=== PATIENT | male | born 1930 | race Caucasian/White ===

== ENCOUNTER → 2016-05-10 | Outpatient (CLI) | payer MEDICARE, OTHER ==
[~2016-05-10] MED LIST: ACET325T38 PO; AMLO10TA5 PO; APIX2.5T2 PO; APIX5TAB PO; ASPI81TA55 PO; ATOR40TA59 PO; ATOR80TA PO; CARV25TA30 PO; CEFD300C PO; CHOL100092 PO; CHOL200014 PO; CYAN10006 PO; CYANOCOBALAMIN; FERR325T5 PO; FRSM20T PO; FURO10VI3 IV; FURO40TA4 PO; FURO80TA84 PO; HDRL25T PO; INDA1.25 PO; INSASP1U SQ; INSU100I23 SC; INSU100V32 SQ; INSU100V8 SC; INSU300I SQ; KCL20TCR PO; LOSA100T3 PO; LVT.05T PO; MELA3TAB34 PO; METF1000 PO; MTL2.5T PO; NF-ALI300T; NF-ALI300T PO; NFMET1000 PO; NIACIN; OMEG1CAP61 PO; OMEG300C3 PO; ONDA4TAB8 PO; ONDN4T PO; SAXA5TAB PO; SIMV40TA2 PO; VIT D PO; ZOLP5TAB PO
== END ==
LOC: RAD 14:25
PROVIDERS: ATTEND Family Medicine
DX: I10 Essential (primary) hypertension (principal); I50.9 Heart failure, unspecified
CPT/HCPCS: 93306

== ENCOUNTER → 2016-05-21 | Outpatient (REF) | payer MEDICARE, OTHER ==
[2016-05-21 13:08] LABS: ANION GAP 13.1 MEQ/L (3-15)
== END ==
LOC: LAB 10:00
PROVIDERS: ATTEND Family Medicine
DX: I50.9 Heart failure, unspecified (principal)
CPT/HCPCS: 80048; 83880

== ENCOUNTER → 2016-05-31 | Outpatient (CLI) | payer MEDICARE, OTHER | LOC: RT 11:01 | PROVIDERS: ATTEND Internal Medicine | DX: I25.10 Atherosclerotic heart disease of native coronary artery without angina pectoris (principal); I50.9 Heart failure, unspecified | CPT/HCPCS: 93005 ==

== ENCOUNTER 2016-06-09 13:28 | Inpatient (IN) | payer MEDICARE, OTHER ==
[~2016-06-09] VITALS: Ht 175.3 cm; Wt 89.7 kg
[2016-06-09 14:29] LABS: MEAN CORPUSCULAR HEMOGLOBIN 27.7 PG (26.0-34.0); MEAN CORPUSCULAR VOLUME 82 FL (80-100); PLATELET COUNT 213 10^3uL (150-450); WHITE BLOOD COUNT 5.32 10^3uL (4.0-11.0)
[2016-06-09 14:46] LABS: ALBUMIN 3.7 g/dL (3.4-5.0); ANION GAP 14.6 MEQ/L (3-15); CALCULATED IONIZED CALCIUM 4.1 mg/dL (3.8-4.6); TOTAL PROTEIN 6.2 g/dL (6.4-8.5)
[2016-06-09 14:51] LABS: INFLUENZA VIRUS TYPE A ANTIBOD Negative (NEGATIVE); INFLUENZA VIRUS TYPE B ANTIBOD Negative (NEGATIVE)
[2016-06-09 14:55] LABS: BAND NEUTROPHILS % 1 % (0-6); EOSINOPHILS % 1 % (0-4); LYMPHOCYTES # 0.7 #; MONOCYTES # 0.8 #; MONOCYTES % 16 % (3-11); SEGMENTED NEUTROPHILS % 68 % (51-67); TOTAL CELLS COUNTED 100
[2016-06-09 14:56] LABS: RBC MORPH NORMAL (NORMAL)
[2016-06-09] MEDS ORDERED: FUROSEMIDE 40 MG/4 ML (LASIX) VIAL IV ONE (16:10)
[2016-06-09] MEDS ORDERED: DEXTROSE 50% 25 GM/50 ML SYRINGE IV ONE (16:25)
[2016-06-09] MEDS ORDERED: POLYETHYLENE GLYCOL 17 GM (MIRALAX) PACKET PO PRN (17:10)
[2016-06-09] MEDS ORDERED: MAG HYDROX/AL HYDROX/SIMETH 200-200-20/5 ML (MAG-AL PLUS) 30 ML UDC PO PRN (17:10)
[2016-06-09] MEDS ORDERED: ONDANSETRON 2 MG/ML (Z0FRAN) 2 ML VIAL IV PRN (17:10)
[2016-06-09] MEDS ORDERED: DEXTROSE 50% 25 GM/50 ML SYRINGE IV PRN (17:10)
[2016-06-09] MEDS ORDERED: GLUCAGON EMERGENCY 1 MG/KIT IM PRN (17:10)
[2016-06-09] MEDS ORDERED: MAGNESIUM HYDROXIDE 80MG/ML (MILK OF MAGNESIA) 30 ML UDC PO PRN (17:10)
[2016-06-09] MEDS ORDERED: DEXTROSE ORAL GEL (GLUTOSE 40%) 15 GM TUBE PO PRN (17:10)
[2016-06-09] MEDS ORDERED: CALCIUM CARBONATE CHEWABLE 300 MG (TUMS) TABLET PO PRN (17:10)
[2016-06-09] MEDS: INSULIN LISPRO 1 UNIT/0.01 ML (HUMALOG) DOSE SC SCH ×2 (17:30→21:00)
[2016-06-09] MEDS ORDERED: INSULIN ASPART 6 UNIT SQ SCH (18:00)
[2016-06-09 18:14] VITALS: BP 152/78
[2016-06-09 18:16] VITALS: BP 152/78
[2016-06-09] MEDS: CARVEDILOL 25 MG (COREG) TABLET PO SCH (18:38)
--- NOTE | 2016-06-09 19:30 | NUR ---
Pt. admitted to 312 at 1755 from ED via WC accompanied by LIQUOR STORE MANAGER. Pt. able to transfer to scale and bed with SBA. Pt. placed on telemetry and report from LINING PRINTER received that pt. is in A. Fib with rate in the 70s. Nail beds are pale, but cap refill is 3 secs. Bilateral feet are discolored purple on the toes and heels. No breakdown noted. Pt. oriented to self, place and situation, but does not know the month, year or president. Pt. provided with sandwich tray for pm meal. Per Dr. Martines, mealtime insulin was held for this meal since pt. received D50 in ED. Report has been given to YVAN Briones, to assume care of pt. Call light is within reach and bed alarm is on.
[2016-06-09 19:34] VITALS: BP 130/61
[2016-06-09] MEDS ORDERED: NON-FORMULARY MEDICATION 1 EA EA (Melatonin 3 MG) PO SCH (21:00)
[2016-06-09] MEDS: INSULIN GLARGINE 1 UNIT/0.01ML (LANTUS) DOSE SC SCH (21:02)
[2016-06-09] MEDS: HEPARIN 5000 UNIT/0.5 ML SYRINGE SC SCH (21:03)
--- NOTE | 2016-06-09 22:04 | NUR ---
Do not have melatonin in pharmacy as it is an herbal medication, is hospital policy to place medication on hold until pt is discharged.
[2016-06-10 00:09] VITALS: BP 122/67
--- NOTE | 2016-06-10 04:17 | NUR ---
Pt continues to be confused through out this shift. Family reports that they spoke with nurse at al[facility] and verified that pt was taking Lasix daily, did notify Dr. Martines, see order. Tab alarm was placed on pt as he likes sitting on the edge of bed, pt knows how to turn tab alarm on and off, so bed alarm was applied as well. Will continue to monitor.
[2016-06-10 04:38] VITALS: BP 124/73
[2016-06-10] MEDS ORDERED: FUROSEMIDE 40 MG/4 ML (LASIX) VIAL IV SCH ×3 (05:00→06:00)
[2016-06-10] MEDS: HEPARIN 5000 UNIT/0.5 ML SYRINGE SC SCH ×3 (05:18→21:15)
[2016-06-10] MEDS: FUROSEMIDE 40 MG/4 ML (LASIX) VIAL IV SCH ×3 (05:18→17:51)
[2016-06-10 06:08] LABS: MEAN CORPUSCULAR HEMOGLOBIN 27.6 PG (26.0-34.0); MEAN CORPUSCULAR HGB CONC 34.1 g/dL (31.0-37.0); MEAN CORPUSCULAR VOLUME 81 FL (80-100); MEAN PLATELET VOLUME 12.3 FL (6.0-9.5); PLATELET COUNT 219 10^3uL (150-450)
[2016-06-10 06:14] LABS: ABSOLUTE RETIC # 67 10^3uL (22-82)
[2016-06-10 06:19] LABS: BAND NEUTROPHILS % 0 % (0-6); LYMPHOCYTES # 1.1 #; MONOCYTES # 0.4 #; MONOCYTES % 6 % (3-11)
[2016-06-10 06:20] LABS: EOSINOPHILS % 2 % (0-4); RBC MORPH NORMAL (NORMAL); SEGMENTED NEUTROPHILS % 76 % (51-67); TOTAL CELLS COUNTED 100
[2016-06-10 06:46] LABS: ALBUMIN 3.5 g/dL (3.4-5.0); ANION GAP 14.1 MEQ/L (3-15); CALCULATED IONIZED CALCIUM 4.2 mg/dL (3.8-4.6); MAGNESIUM* 1.9 mg/dL (1.6-2.3); PHOSPHORUS 4.1 mg/dL (2.4-4.9); TOTAL PROTEIN 6.1 g/dL (6.4-8.5)
[2016-06-10] MEDS: INSULIN LISPRO 1 UNIT/0.01 ML (HUMALOG) DOSE SC SCH ×7 (07:21→20:49)
[2016-06-10 08:01] VITALS: BP 158/85
[2016-06-10] MEDS: ASPIRIN 81 MG CHEW (CHILDREN'S ASA) PO SCH (08:36)
[2016-06-10] MEDS: LOSARTAN 100 MG (COZAAR) TABLET PO SCH (08:36)
[2016-06-10] MEDS: CHOLECALCIFEROL 1000 INT UNITS (VITAMIN D3) TABLET PO SCH (08:36)
[2016-06-10] MEDS: CARVEDILOL 25 MG (COREG) TABLET PO SCH ×2 (08:36→17:51)
[2016-06-10] MEDS: LEVOTHYROXINE 50 MCG (LEVOTHROID) TABLET PO SCH (08:36)
--- NOTE | 2016-06-10 08:46 | NUR ---
NUTRITION ASSESSMENT Level 1 Patient: Shaila Lombardo Age/Sex: 85/M Date Screened: 06-10-16 Weight: 207.4#/94.3 kg Height: 69 inches Primary Diagnosis: CHF Diet Order: cardiac Relevant labs: sodium 132, glucose 164, Hgb A1c 7.4, iron/B12/folate (pending), TSH 5.36 Food allergies: N Nutrition Assessment Criteria Age over 80: 4 points Body Mass Index (BMI) under 19: N Admission Screening Indicates Risk? N Moderate/High Risk Diagnosis: 3 points TPN or PPN: N NPO or clear liquid diet: N Serum Glucose <70 or >180: N Hgb A1c >6.7: 3 points Total: 10 points Risk Screen: __ Patient at low nutritional risk based on available data; reevaluate in 5-7 days __ Patient at moderate nutritional risk based on available data; reevaluate in 3-5 days _X_ Patient at high nutritional risk; complete Nutrition Assessment within 48 hours of admission.
[2016-06-10] MEDS ORDERED: ATORVASTATIN 40 MG PO SCH (09:00)
[2016-06-10] MEDS ORDERED: ASPIRIN 81 MG PO SCH (09:00)
--- NOTE | 2016-06-10 09:30 | NUR ---
Med Rec completed by outpatient pharmacy manager via MAR and ext med hx.
--- NOTE | 2016-06-10 09:45 | NUR ---
Pt sitting up in chair at this time. Skin warm, dry, intact. Resprs nonlabored, even on RA. Pt endorses feeling better than when he came in. Denies SOA or pain. Approx 2+ pitting edema in bilateral legs. Pt is confused, does not comply with call light system. Pulls tabs alarms off frequently. Bed alarm and pressure alarm attached. [facility] visiting with patients. States pt looks much better than when they brought him in.
--- NOTE | 2016-06-10 10:32 | NUR ---
MULTIDISCIPLINARY MTG/DR. MARTINES: Pt. placed on diuretic and seems to have improved. Dr. Martines will evaluate Pt. today and possibly discharge later today. [facility] was here to evaluate Pt. this morning and reports he appears much better. No discharge needs identified at this time.
--- NOTE | 2016-06-10 10:38 | NUR ---
NUTRITION ASSESSMENT Level II Patient: Shaila Lombardo Age/Sex: 85/M Date Assessed: 06-10-16 ASSESSMENT Pertinent History: Patient admitted with CHF and screened at high nutritional risk secondary to elderly age, diagnosis and elevated Hgb A1c. PMHx includes CAD, diabetes, HTN and hypothyroidism. He lives at assisted living. Pt. denies GI concerns and weight changes; most recent weight was 191# in 2014. Pt. has a history of not taking his insulin, and at 2014 admission his A1c was >14. Since then his diabetic management has markedly improved. Meds/Nutrition: Synthroid, vitamin D, Humalog, Lasix, Lantus Weight: 207.4#/94.3 kg Height: 69 inches Body Mass Index (BMI): 30.7 [place] Body Weight : 160#/72.7 kg % IBW: 129% GASTROINTESTINAL Appetite: good, eating 50-90% Diet Order: cardiac Unintentional loss of >10 lbs. in 3 months: N Difficult to chew/swallow: N Diabetes: Yes Relevant Labs: sodium 132, glucose 164, Hgb A1c 7.4, iron/B12/folate (pending), TSH 5.36 Calculations for Nutritional Assessment Estimated calorie needs: 22-25 kcals/kg = 2,060-2,350 kcals Estimated protein needs: 1.0-1.1 g/kg = 94-103 g./day DIAGNOSIS 1. Nutrition Diagnosis: Decreased sodium needs related to heart failure as evidenced by CHF with fluid retention and SOA. NUTRITIONAL INTERVENTION Goal: Patient will receive adequate nutrition to meet his needs. Plan: Agree with cardiac diet; will provide as ordered and monitor intake for adequacy. Expect weight loss with diuresis. MONITORING & EVALUATION _X_ Monitor patients menu selections _X_ Monitor patients food intake per nursing notes __ Monitor NPO/clear liquid days __ Monitor lab values __ Monitor I&O __ Other
[2016-06-10 11:51] VITALS: BP 109/64
[2016-06-10 17:34] VITALS: BP 150/73
--- NOTE | 2016-06-10 18:45 | NUR ---
Pt sitting up in chair at this time. Skin warm, dry, intact. Resprs nonlabored, even on RA. Pulls tabs alarms off frequently. Pt has been seen getting out of the chair and putting his cane on the bed alarm as to quiet it. Frequent monitoring required, though pt is steady on his feet with the cane. Pt has walked in halls with staff multiple times this shift. Bed alarm and pressure alarm attached. SL intact. Pt denies needs.
[2016-06-10 20:09] VITALS: BP 142/82
[2016-06-10] MEDS: INSULIN GLARGINE 1 UNIT/0.01ML (LANTUS) DOSE SC SCH (20:49)
[2016-06-10] MEDS: ATORVASTATIN 40 MG (LIPITOR) TABLET PO SCH (20:49)
[2016-06-10] MEDS: ACETAMINOPHEN 325 MG TAB (TYLENOL) PO PRN (21:15)
--- NOTE | 2016-06-11 00:18 | NUR ---
Pt states that he feels "sick. Maybe it's my sugar. Will you check my sugar?" Augustin done - 79. Pt provided with crackers and milk. Will continue to monitor.
[2016-06-11 00:34] VITALS: BP 145/72
[2016-06-11] MEDS: ACETAMINOPHEN 325 MG TAB (TYLENOL) PO PRN ×3 (02:38→14:38)
[2016-06-11] MEDS: HEPARIN 5000 UNIT/0.5 ML SYRINGE SC SCH ×3 (05:04→20:23)
[2016-06-11] MEDS: FUROSEMIDE 40 MG/4 ML (LASIX) VIAL IV SCH ×3 (05:04→16:45)
[2016-06-11] MEDS: SODIUM CHLORIDE FLUSH 10 ML SYR IV PRN ×2 (05:04→16:45)
--- NOTE | 2016-06-11 05:12 | NUR ---
Noted that pt's lower extremities are swollen - 3-4+ pitting edema. Morning dose of Lasix given per order. Prince ahn put on pt. Pt states that his legs do not hurt. Pt has not been compliant with leaving his legs elevated. Pt working harder to breathe, but remains on RA; o2 sat 94%. SL intact. No needs at this time.
[2016-06-11 06:19] VITALS: BP 178/92
[2016-06-11 06:34] LABS: MEAN CORPUSCULAR HEMOGLOBIN 27.5 PG (26.0-34.0); MEAN CORPUSCULAR HGB CONC 34.4 g/dL (31.0-37.0); MEAN PLATELET VOLUME 12.5 FL (6.0-9.5); WHITE BLOOD COUNT 6.07 10^3uL (4.0-11.0)
[2016-06-11 07:13] LABS: ALBUMIN 3.8 g/dL (3.4-5.0); ANION GAP 14.2 MEQ/L (3-15); CALCULATED IONIZED CALCIUM 4.1 mg/dL (3.8-4.6); MAGNESIUM* 1.9 mg/dL (1.6-2.3); PHOSPHORUS 4.6 mg/dL (2.4-4.9); TOTAL PROTEIN 6.4 g/dL (6.4-8.5)
[2016-06-11 07:31] VITALS: BP 197/93
[2016-06-11] MEDS: INSULIN LISPRO 1 UNIT/0.01 ML (HUMALOG) DOSE SC SCH ×7 (07:49→21:00)
[2016-06-11] MEDS: CHOLECALCIFEROL 1000 INT UNITS (VITAMIN D3) TABLET PO SCH (07:50)
[2016-06-11] MEDS: LEVOTHYROXINE 50 MCG (LEVOTHROID) TABLET PO SCH (07:50)
[2016-06-11] MEDS: LOSARTAN 100 MG (COZAAR) TABLET PO SCH (07:50)
[2016-06-11] MEDS: CARVEDILOL 25 MG (COREG) TABLET PO SCH ×2 (07:50→16:46)
[2016-06-11] MEDS: ASPIRIN 81 MG CHEW (CHILDREN'S ASA) PO SCH (07:50)
--- NOTE | 2016-06-11 09:58 | NUR ---
Pt restless in room. Ate bfst and takes AM meds without difficulty or c/o. Tabs and pressure alarm in place- patient sets these off frequently. Yellow gown and socks in place and frequent visual monitoring for fall risk precautions. BLE 2+ pitting. remains on RA, Resp even, nonlab. SKin warm, dry, intact. call light within reach. Does not always call for assist- limited recall.
[2016-06-11 11:22] VITALS: BP 134/65
--- NOTE | 2016-06-11 14:40 | NUR ---
Pt given Tylenol 650mg PO for left leg pain.
[2016-06-11 16:07] VITALS: BP 151/74
--- NOTE | 2016-06-11 16:48 | NUR ---
20g IV dc'd to RAC. 20g IV started to LB at this time. Patent, flushes without difficulty. Sitting upright in chair, daughter at bedside. Tabs alarm and pressure alarm intact.
--- NOTE | 2016-06-11 19:47 | NUR ---
Pt is sitting up in recliner, alert and confused, continues to try and get up on his own. Tab alarm, pressure alarm are on at this time, does use bed alarm when in bed. Pt has learned how to use the tab alarm and will unhook it from his gown, has also learned that if he puts his cane on the pressure alarm it will turn the alarm off. Pt is reoriented several times. Continues to have +2 pitting edema to bilateral lower extremities, pt is not compliant with keeping his legs elevated. Does continue to receive IV Lasix TID. Denies pain or discomfort at this time. Continues to run A-fib with PVC's on telemetry. SL is patent, no redness, swelling, or s/s of infection noted at this time. Call light in reach, will continue to monitor frequently.
[2016-06-11 19:51] VITALS: BP 126/66
[2016-06-11] MEDS: ATORVASTATIN 40 MG (LIPITOR) TABLET PO SCH (20:22)
[2016-06-11] MEDS: INSULIN GLARGINE 1 UNIT/0.01ML (LANTUS) DOSE SC SCH (20:23)
[2016-06-11] MEDS ORDERED: APIXABAN 2.5 MG (ELIQUIS) TABLET PO ONE (22:15)
[2016-06-12] VITALS: BP 102/52
[2016-06-12 04:22] VITALS: BP 168/75
--- NOTE | 2016-06-12 04:30 | NUR ---
Pt has been resting in bed sleeping most of the night, has been up to the restroom 4 x's during this shift. Bed alarm is on and call light is in reach, will continue to monitor.
[2016-06-12] MEDS ORDERED: LEVOTHYROXINE 50 MCG (LEVOTHROID) TABLET ONE (05:44)
[2016-06-12] MEDS: HEPARIN 5000 UNIT/0.5 ML SYRINGE SC SCH (05:53)
[2016-06-12] MEDS: LEVOTHYROXINE 50 MCG (LEVOTHROID) TABLET PO SCH (05:53)
[2016-06-12 06:32] LABS: MEAN CORPUSCULAR HEMOGLOBIN 27.5 PG (26.0-34.0); MEAN CORPUSCULAR HGB CONC 34.5 g/dL (31.0-37.0); MEAN CORPUSCULAR VOLUME 80 FL (80-100); MEAN PLATELET VOLUME 12.4 FL (6.0-9.5); PLATELET COUNT 217 10^3uL (150-450); WHITE BLOOD COUNT 6.92 10^3uL (4.0-11.0)
[2016-06-12] MEDS: INSULIN LISPRO 1 UNIT/0.01 ML (HUMALOG) DOSE SC SCH ×7 (07:10→21:57)
[2016-06-12 07:17] LABS: ALBUMIN 3.5 g/dL (3.4-5.0); ANION GAP 13.6 MEQ/L (3-15); MAGNESIUM* 1.9 mg/dL (1.6-2.3); PHOSPHORUS 4.7 mg/dL (2.4-4.9)
[2016-06-12 07:34] LABS: BAND NEUTROPHILS % 3 % (0-6); EOSINOPHILS % 2 % (0-4); LYMPHOCYTES # 0.9 #; MONOCYTES # 0.7 #; MONOCYTES % 12 % (3-11); RBC MORPH NORMAL (NORMAL); SEGMENTED NEUTROPHILS % 70 % (51-67); TOTAL CELLS COUNTED 100
[2016-06-12] MEDS: CARVEDILOL 25 MG (COREG) TABLET PO SCH ×2 (08:09→17:35)
[2016-06-12] MEDS: FUROSEMIDE 40 MG/4 ML (LASIX) VIAL IV SCH ×2 (09:53→14:02)
[2016-06-12] MEDS: APIXABAN 2.5 MG (ELIQUIS) TABLET PO SCH ×2 (09:53→21:56)
[2016-06-12] MEDS: LOSARTAN 100 MG (COZAAR) TABLET PO SCH (09:53)
[2016-06-12] MEDS: ASPIRIN 81 MG CHEW (CHILDREN'S ASA) PO SCH (09:53)
[2016-06-12] MEDS: SODIUM CHLORIDE FLUSH 10 ML SYR IV PRN ×2 (09:54→14:02)
[2016-06-12] MEDS: CHOLECALCIFEROL 1000 INT UNITS (VITAMIN D3) TABLET PO SCH (09:54)
[2016-06-12 11:43] VITALS: BP 138/74
--- NOTE | 2016-06-12 15:51 | NUR ---
Information sent to [facility] to review acceptance to skilled care. Addendum: 06/13/16 at 1421 by Trang RUST Pt. has been accepted to [facility] for skilled care upon discharge. Addendum: 06/13/16 at 1540 by Trang RUST Upon discharge Pt. will go to House 807 at [facility]. Ext. [phone]
[2016-06-12 16:00] VITALS: BP 158/82
--- NOTE | 2016-06-12 19:09 | NUR ---
Pt sitting up in chair. Tabs and [place] alarm in place. Pt is in yellow fall risk gown, yellow socks, and has on a yellow fall risk bracelet. Pt has a saline lock in his right hand with Coban around it. Pt is pleasant and asks a lot of questions as to why he is here and why he has an IV. Pt able to give me his name, but not year or town. Pt's breathing is equal and unlabored on room air.
[2016-06-12 19:54] VITALS: BP 176/90
[2016-06-12] MEDS: ATORVASTATIN 40 MG (LIPITOR) TABLET PO SCH (21:56)
[2016-06-12] MEDS: INSULIN GLARGINE 1 UNIT/0.01ML (LANTUS) DOSE SC SCH (21:56)
[2016-06-13] VITALS (8 sets, daily range): BP systolic 109–177; BP diastolic 55–91
[2016-06-13] MEDS: INSULIN LISPRO 1 UNIT/0.01 ML (HUMALOG) DOSE SC SCH ×7 (06:21→20:53)
[2016-06-13] MEDS: LEVOTHYROXINE 50 MCG (LEVOTHROID) TABLET PO SCH (06:42)
[2016-06-13 06:49] LABS: ALBUMIN 3.6 g/dL (3.4-5.0); ANION GAP 13.9 MEQ/L (3-15); PHOSPHORUS 4.3 mg/dL (2.4-4.9)
--- NOTE | 2016-06-13 07:12 | NUR ---
Was without complaint of pain throughout night. Spent part of the night in recliner and slept off and on throughout the night. Requested water several times after fluid restrictions for night were up. Few ice chips given at one time and sip of water with morning medication. Reason for restrictions given and patient nods understanding, but likely unable to remember as he asks again for more water.
--- NOTE | 2016-06-13 08:36 | NUR ---
DR. PARRA INFORMED PATIENT'S BLOOD SUGAR 74. HOLD AM INSULIN VORB DR. PARRA/ROGELIO SANTORO
[2016-06-13] MEDS: FERROUS SULFATE 325 MG (IRON) TABLET PO SCH ×2 (08:39→17:47)
[2016-06-13] MEDS: CARVEDILOL 25 MG (COREG) TABLET PO SCH ×2 (08:39→17:47)
[2016-06-13] MEDS: METOLAZONE 2.5 MG (ZAROXOLYN) TAB PO SCH ×2 (08:45→14:37)
[2016-06-13] MEDS: ASPIRIN 81 MG CHEW (CHILDREN'S ASA) PO SCH (09:28)
[2016-06-13] MEDS: APIXABAN 2.5 MG (ELIQUIS) TABLET PO SCH ×2 (09:28→20:52)
[2016-06-13] MEDS: POTASSIUM CHLORIDE ER 20 MEQ TABLET PO SCH ×2 (09:28→17:47)
[2016-06-13] MEDS: LOSARTAN 100 MG (COZAAR) TABLET PO SCH (09:29)
[2016-06-13] MEDS: FUROSEMIDE 100 MG/10 ML (LASIX) VIAL IV SCH ×2 (09:29→15:06)
[2016-06-13] MEDS: CHOLECALCIFEROL 1000 INT UNITS (VITAMIN D3) TABLET PO SCH (09:29)
[2016-06-13] MEDS: SODIUM CHLORIDE FLUSH 10 ML SYR IV PRN (15:06)
[2016-06-13 17:15] LABS: ALBUMIN 3.8 g/dL (3.4-5.0); ANION GAP 13.1 MEQ/L (3-15); PHOSPHORUS 4.2 mg/dL (2.4-4.9)
[2016-06-13] MEDS: ATORVASTATIN 40 MG (LIPITOR) TABLET PO SCH (20:52)
[2016-06-13] MEDS: INSULIN GLARGINE 1 UNIT/0.01ML (LANTUS) DOSE SC SCH (20:54)
--- NOTE | 2016-06-14 00:30 | NUR ---
Patient laying in bed. Skin is pale and diaphoretic. States that he feels like he needs juice, like his blood glucose is low. Accucheck obtained= 50. Glutose and juice given per hypoglycemic protocol. Patient takes both without difficulties. Cheese offered but patient pushes away. Will continue to monitor.
--- NOTE | 2016-06-14 00:50 | NUR ---
Patient's blood sugar 62. Patient agreeable to milk and cheese now. Both given. Will recheck.
--- NOTE | 2016-06-14 01:15 | NUR ---
Patient's blood glucose at this time: 107. Will continue to monitor.
--- NOTE | 2016-06-14 02:00 | NUR ---
Patient resting in bed at this time, blood glucose 103. Will continue to monitor.
--- NOTE | 2016-06-14 02:30 | NUR ---
Recheck per hypoglycemic protocol: 103. Patient resting in bed, will continue to monitor.
[2016-06-14 03:56] VITALS: BP 136/71
[2016-06-14] MEDS: LEVOTHYROXINE 50 MCG (LEVOTHROID) TABLET PO SCH (06:05)
--- NOTE | 2016-06-14 06:28 | NUR ---
AM glucose: 96. Patient has been confused throughout night, restless in bed at times. TABS and Bed Alarm on for patient safety. Has not had BM this shift. No needs at this time.
[2016-06-14 06:43] LABS: ALBUMIN 3.5 g/dL (3.4-5.0); ANION GAP 14.3 MEQ/L (3-15); MAGNESIUM* 2.1 mg/dL (1.6-2.3); PHOSPHORUS 5.1 mg/dL (2.4-4.9)
[2016-06-14] MEDS: INSULIN LISPRO 1 UNIT/0.01 ML (HUMALOG) DOSE SC SCH ×4 (07:30→12:28)
[2016-06-14 08:13] VITALS: BP 162/76
[2016-06-14] MEDS: LOSARTAN 100 MG (COZAAR) TABLET PO SCH (08:30)
[2016-06-14] MEDS: CHOLECALCIFEROL 1000 INT UNITS (VITAMIN D3) TABLET PO SCH (08:30)
[2016-06-14] MEDS: POTASSIUM CHLORIDE ER 20 MEQ TABLET PO SCH (08:30)
[2016-06-14] MEDS: FERROUS SULFATE 325 MG (IRON) TABLET PO SCH (08:30)
[2016-06-14] MEDS: METOLAZONE 2.5 MG (ZAROXOLYN) TAB PO SCH (08:30)
[2016-06-14] MEDS: CARVEDILOL 25 MG (COREG) TABLET PO SCH (08:30)
[2016-06-14] MEDS: APIXABAN 2.5 MG (ELIQUIS) TABLET PO SCH (08:30)
[2016-06-14] MEDS: ASPIRIN 81 MG CHEW (CHILDREN'S ASA) PO SCH (08:31)
--- NOTE | 2016-06-14 09:30 | NUR ---
Pt sitting up in chair at this time. Skin warm, dry, intact. Resprs nonlabored, even on RA. 2+ pitting edema on bilateral legs. Pt is pleasantly confused, asks same questions multiple times throughout the morning. Frequent monitoring required. Bed alarm and pressure alarm attached. Pt sets alarms off frequently. SL intact, wrapped in coban, white sleeve, and pink velcro sleeve. Pt denies needs.
[2016-06-14] MEDS: FUROSEMIDE 100 MG/10 ML (LASIX) VIAL IV SCH (09:45)
[2016-06-14 11:58] VITALS: BP 128/60
--- NOTE | 2016-06-14 13:05 | NUR ---
Report received from Tiara SANTORO and care assumed.
--- NOTE | 2016-06-14 14:50 | NUR ---
Received orders for discharge. [facility] called and report given to Nadeen at the [facility].
--- NOTE | 2016-06-14 15:12 | NUR ---
Miko from the [facility] present to take pt. Pt is dressed and personal items sent with the pt. Pt dismissed per w/c. Called Nadeen at [facility] to report that pt had reddened area in the groin areas on both sides.
== END 2016-06-14 15:12 | DRG 291 ==
LOC: EDUNIT# 13:28 → ED 13:30 → OBSVTOIN 17:29 → MED/SURG 17:29
PROVIDERS: ADMIT Family Medicine; ATTEND Family Medicine
DX: I11.0 Hypertensive heart disease with heart failure (principal); J96.00 Acute respiratory failure, unspecified whether with hypoxia or hypercapnia; E87.1 Hypo-osmolality and hyponatremia; F05 Delirium due to known physiological condition; Z66 Do not resuscitate; I50.23 Acute on chronic systolic (congestive) heart failure; I48.91 Unspecified atrial fibrillation; D50.9 Iron deficiency anemia, unspecified; E11.649 Type 2 diabetes mellitus with hypoglycemia without coma; I25.10 Atherosclerotic heart disease of native coronary artery without angina pectoris; Z79.82 Long term (current) use of aspirin; Z79.4 Long term (current) use of insulin; Z79.84 Long term (current) use of oral hypoglycemic drugs; Z95.1 Presence of aortocoronary bypass graft
CPT/HCPCS: 36415; 71010; 71020; 80053; 80069; 82550; 82553; 82607; 82747; 83036; 83540; 83550; 83735; 83880; 84100; 84443; 84484; 85025; 85027; 85045; 85610; 87502; 93005; 93010; 96374; 96375; 99284; 99285

== ENCOUNTER 2016-07-02 12:01 | Emergency (ER) | payer MEDICARE, OTHER ==
[~2016-07-02] VITALS: Ht 175.3 cm; Wt 81.8 kg
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
[2016-07-02] MEDS ORDERED: SODIUM CHLORIDE FLUSH 3 ML SYR IV PRN (12:45)
[2016-07-02] MEDS ORDERED: SODIUM CHLORIDE FLUSH 10 ML SYR IV PRN (12:45)
[2016-07-02 13:20] LABS: MEAN CORPUSCULAR HGB CONC 33.2 g/dL (31.0-37.0); MEAN CORPUSCULAR VOLUME 81 FL (80-100); MEAN PLATELET VOLUME 12.8 FL (6.0-9.5); PLATELET COUNT 156 10^3uL (150-450); WHITE BLOOD COUNT 3.89 10^3uL (4.0-11.0)
[2016-07-02 13:43] LABS: MEAN CORPUSCULAR HEMOGLOBIN 26.8 PG (26.0-34.0)
[2016-07-02 13:45] LABS: BAND NEUTROPHILS % 0 % (0-6); EOSINOPHILS % 3 % (0-4); LYMPHOCYTES # 0.3 #; MONOCYTES # 0.5 #; MONOCYTES % 17 % (3-11); SEGMENTED NEUTROPHILS % 71 % (51-67); TOTAL CELLS COUNTED 100
[2016-07-02 13:46] LABS: RBC MORPH NORMAL (NORMAL)
[2016-07-02 13:48] LABS: ALBUMIN 3.9 g/dL (3.4-5.0); ANION GAP 17.5 MEQ/L (3-15); CALCULATED IONIZED CALCIUM 4.2 mg/dL (3.8-4.6); TOTAL PROTEIN 6.7 g/dL (6.4-8.5)
[2016-07-02] MEDS ORDERED: SODIUM CHLORIDE 250 ML IV SCH (14:40)
[2016-07-02 15:26] LABS: BILIRUBIN,URINE Negative (Negative); COLOR,URINE Yellow; GLUCOSE, URINE (UA) Negative (Negative); LEUKOCYTE ESTERASE ,URINE Negative (Negative); PH,URINE 5.5 (5.0 - 8.0); UROBILINOGEN,URINE 0.2 mg/dL (0.2-1.0)
[2016-07-02 15:30] LABS: CLARITY,URINE Slightly Cloudy; RBC,URINE None Seen /HPF; URINE CENTRIFUGED VOLUME 12 mL
--- NOTE | 2016-07-02 17:35 | NUR ---
ANABELA (NURSE FROM [facility] CALLS STATING SHE IS HEADING TO FACILITY NOW & WONDERS ABOUT REPORT OR WHAT WAS FOUND WITH PT. REPORT REPEATED THE SAME GIVEN TO SIERRA ALVAREZ (MED AID). INFORMED HER SHE TOOK REPORT EARLIER AT 1645 & THAT PT WAS BROUGHT TO ED WITHOUT PREV PH CALL WITH INFO ON WHAT HE WAS BEING SENT FOR. INFORMED ALSO PT HAD NO NEURO DEFICITS ON ED ADMIT BUT WAS WEAK & NOT FEELING WELL IN THIS RESPECT. PT ABLE TO GET UP W/1 NS ASSIST TO WHEELCHAIR AFTER REDRESSING. DAUGHTER HAD TAKEN PT BACK TO FACILITY. PT WAS GIVEN AALIYAH & CHAPIS KOWALSKI PRIOR TO D/C & PT JOKING. DAUGHTER STATES HE DOES ACT BETTER. PT STATES HE FELT BETTER. CL
[2016-07-02 22:06] VITALS: BP 142/62
== END 2016-07-02 17:07 | disposition home or self-care (01) ==
LOC: EDUNIT# 12:01 → ED 12:03
DX: R53.1 Weakness (principal); R53.81 Other malaise
CPT/HCPCS: 36415; 71010; 80053; 81003; 81015; 83880; 84484; 85025; 86140; 93005; 99285; J7050; 93010; 99284

== ENCOUNTER → 2016-07-03 | Emergency (ER) | payer MEDICARE, OTHER ==
[~2016-07-03] VITALS: Ht 175.3 cm; Wt 81.0 kg
[2016-07-03 21:25] VITALS: BP 134/59
== END | disposition still patient (30) ==
LOC: ED 18:56
DX: R55 Syncope and collapse (principal)
CPT/HCPCS: 70450; 99281; 99284

== ENCOUNTER 2016-07-05 10:19 | Inpatient (IN) | payer MEDICARE, OTHER ==
[~2016-07-05] VITALS: Ht 177.8 cm; Wt 79.6 kg
[2016-07-05 13:30] LABS: BILIRUBIN,URINE Negative (Negative); CLARITY,URINE Clear; COLOR,URINE Yellow; GLUCOSE, URINE (UA) Trace (Negative); LEUKOCYTE ESTERASE ,URINE Negative (Negative); PH,URINE 5.5 (5.0 - 8.0); UROBILINOGEN,URINE 0.2 mg/dL (0.2-1.0)
[2016-07-05 13:38] LABS: BASOPHILS % (AUTO) 1 % (0-2); EOSINOPHILS # (AUTO) 0.1 10^3uL; EOSINOPHILS % (AUTO) 1 % (0-4); LYMPHOCYTES # (AUTO) 0.9 X10^3; MEAN CORPUSCULAR HEMOGLOBIN 26.8 PG (26.0-34.0); MEAN CORPUSCULAR HGB CONC 33.8 g/dL (31.0-37.0); MEAN CORPUSCULAR VOLUME 79 FL (80-100); MEAN PLATELET VOLUME 13.2 FL (6.0-9.5); MONOCYTES # (AUTO) 0.7 X10^3; MONOCYTES % (AUTO) 12 % (3-11); NEUTROPHILS # (AUTO) 4.1 X10^3; NEUTROPHILS % (AUTO) 69 % (51-67); PLATELET COUNT 125 10^3uL (150-450); WHITE BLOOD COUNT 5.88 10^3uL (4.0-11.0)
[2016-07-05 13:42] LABS: RBC,URINE 0-2 /HPF; URINE CENTRIFUGED VOLUME 12 mL
[2016-07-05 13:48] LABS: ANION GAP 18.1 MEQ/L (3-15)
[2016-07-05 13:49] LABS: ALBUMIN 3.6 g/dL (3.4-5.0); CALCULATED IONIZED CALCIUM 4.2 mg/dL (3.8-4.6); TOTAL PROTEIN 6.2 g/dL (6.4-8.5)
--- NOTE | 2016-07-05 14:15 | NUR ---
Patient admitted to room 313 per cart from ER.
[2016-07-05] MEDS ORDERED: ONDANSETRON 2 MG/ML (Z0FRAN) 2 ML VIAL IV ONE (14:20)
--- NOTE | 2016-07-05 14:30 | NUR ---
Patient awakens when staff ask him questions. Answers simple questions appropriately but is confused when it comes to why he is here or about his health history. Denies pain.
[2016-07-05 15:45] VITALS: BP 152/72
--- NOTE | 2016-07-05 15:55 | NUR ---
MED REC COMPLETE--current med list obtained from [facility] ([facility])
[2016-07-05] MEDS ORDERED: DEXTROSE 50% 25 GM/50 ML SYRINGE IV PRN (16:30)
[2016-07-05] MEDS ORDERED: ONDANSETRON 2 MG/ML (Z0FRAN) 2 ML VIAL IV PRN (16:30)
[2016-07-05] MEDS ORDERED: morphine INJ 4 MG/ML 1 ML SYRINGE IV PRN (16:30)
[2016-07-05] MEDS ORDERED: ONDANSETRON 4 MG (ZOFRAN) ORAL DISSOLVE TAB PO PRN (16:30)
[2016-07-05] MEDS ORDERED: MAGNESIUM HYDROXIDE 80MG/ML (MILK OF MAGNESIA) 30 ML UDC PO PRN (16:30)
[2016-07-05] MEDS ORDERED: PROMETHAZINE HCL INJ 12.5 MG in SODIUM CHLORIDE 25 ML IV PRN (16:30)
[2016-07-05] MEDS ORDERED: GLUCAGON EMERGENCY 1 MG/KIT IM PRN (16:30)
[2016-07-05] MEDS ORDERED: DEXTROSE ORAL GEL (GLUTOSE 40%) 15 GM TUBE PO PRN (16:30)
--- NOTE | 2016-07-05 16:30 | NUR ---
Patient sleeps most of the time unless staff are doing cares with him. Denies pain. Continent or urine two times this afternoon.
[2016-07-05 16:36] VITALS: BP 152/72
[2016-07-05 16:49] LABS: MAGNESIUM* 1.8 mg/dL (1.6-2.3)
[2016-07-05] MEDS ORDERED: NS FLUSH 3 ML PRN IV (16:50)
[2016-07-05] MEDS ORDERED: NS FLUSH 10 ML PRN IV (16:50)
[2016-07-05 17:24] VITALS: BP 123/63
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
[2016-07-05] MEDS: INSULIN LISPRO 1 UNIT/0.01 ML (HUMALOG) DOSE SC SCH ×2 (18:01→21:14)
--- NOTE | 2016-07-05 18:10 | NUR ---
IV NS to infuse per [facility] 22G @ 500 mL/hr - repositioned in bed - warm blanket applied - Telemetry applied
[2016-07-05 19:41] VITALS: BP 146/69
[2016-07-05] MEDS: ATORVASTATIN 40 MG (LIPITOR) TABLET PO SCH (21:16)
[2016-07-05] MEDS: INSULIN GLARGINE 1 UNIT/0.01ML (LANTUS) DOSE SC SCH (21:16)
[2016-07-05 23:56] VITALS: BP 143/58
[2016-07-06] VITALS (8 sets, daily range): BP systolic 105–178; BP diastolic 50–80
[2016-07-06] MEDS: LEVOTHYROXINE 50 MCG (LEVOTHROID) TABLET PO SCH (05:38)
[2016-07-06 06:13] LABS: BASOPHILS % (AUTO) 1 % (0-2); EOSINOPHILS # (AUTO) 0.1 10^3uL; EOSINOPHILS % (AUTO) 1 % (0-4); LYMPHOCYTES # (AUTO) 1.4 X10^3; MEAN CORPUSCULAR HGB CONC 33.9 g/dL (31.0-37.0); MEAN PLATELET VOLUME 13.5 FL (6.0-9.5); MONOCYTES # (AUTO) 0.8 X10^3; MONOCYTES % (AUTO) 10 % (3-11); NEUTROPHILS # (AUTO) 6.1 X10^3; NEUTROPHILS % (AUTO) 72 % (51-67); PLATELET COUNT 147 10^3uL (150-450); WHITE BLOOD COUNT 8.46 10^3uL (4.0-11.0)
--- NOTE | 2016-07-06 06:19 | NUR ---
Pt rests in long intervals; confusion noted, no changes in neuro status. SL intact. No needs at this time.
[2016-07-06 06:48] LABS: MEAN CORPUSCULAR HEMOGLOBIN 26.7 PG (26.0-34.0); MEAN CORPUSCULAR VOLUME 79 FL (80-100)
--- NOTE | 2016-07-06 06:50 | NUR ---
Received report from Jayne SANTORO. Assumed patient care.
[2016-07-06 06:54] LABS: ALBUMIN 3.4 g/dL (3.4-5.0); ANION GAP 17.5 MEQ/L (3-15); CALCULATED IONIZED CALCIUM 4.4 mg/dL (3.8-4.6); TOTAL PROTEIN 6.1 g/dL (6.4-8.5)
--- NOTE | 2016-07-06 07:30 | NUR ---
Patient is resting in bed with eyes closed. Patient did not open his eyes to verbal stimulus but did move arms and legs. Patient assessment completed. Lungs sounds were clear in all loaiza. Abdomen is soft with hypoactive bowel sounds. Pulses were palpable in all extremities.
[2016-07-06] MEDS: INSULIN LISPRO 1 UNIT/0.01 ML (HUMALOG) DOSE SC SCH ×7 (08:00→20:45)
[2016-07-06] MEDS: OMEGA-3 FATTY ACIDS (FISH OIL) 500 MG CAPSULE PO SCH (09:12)
[2016-07-06] MEDS: ASPIRIN 81 MG CHEW (CHILDREN'S ASA) PO SCH (09:12)
[2016-07-06] MEDS: CHOLECALCIFEROL 1000 INT UNITS (VITAMIN D3) TABLET PO SCH (09:12)
[2016-07-06] MEDS: CYANOCOBALAMIN 1000 MCG (VITAMIN B-12) TABLET PO SCH (09:12)
--- NOTE | 2016-07-06 09:19 | NUR ---
Pt found on RA, SPO2 96, HR 96, RR 12. Pt is unable to follow instructions for incentive spirometry at this time.
[2016-07-06] MEDS: ACETAMINOPHEN 325 MG TAB (TYLENOL) PO PRN (12:04)
[2016-07-06] MEDS ORDERED: MAGNESIUM 1 GM/100 ML IVPB 100 ML IV ONE (13:25)
[2016-07-06] MEDS: LOSARTAN 100 MG (COZAAR) TABLET PO SCH (14:02)
[2016-07-06] MEDS: NS FLUSH 3 ML DAILY IV SCH (14:03)
[2016-07-06] MEDS: CARVEDILOL 25 MG (COREG) TABLET PO SCH (17:42)
[2016-07-06] MEDS: MAGNESIUM OXIDE 400 MG (MAG-OX) TAB PO SCH (17:42)
[2016-07-06] MEDS: hydrALAZINE 25 MG (APRESOLINE) TABLET PO SCH (20:45)
[2016-07-06] MEDS: APIXABAN 2.5 MG (ELIQUIS) TABLET PO SCH (20:45)
[2016-07-06] MEDS: ATORVASTATIN 40 MG (LIPITOR) TABLET PO SCH (20:45)
[2016-07-06] MEDS: INSULIN GLARGINE 1 UNIT/0.01ML (LANTUS) DOSE SC SCH (20:45)
[2016-07-07] VITALS (7 sets, daily range): BP systolic 93–151; BP diastolic 40–72
[2016-07-07] MEDS: LEVOTHYROXINE 50 MCG (LEVOTHROID) TABLET PO SCH (05:21)
[2016-07-07 06:00] LABS: BASOPHILS % (AUTO) 0 % (0-2); EOSINOPHILS # (AUTO) 0.1 10^3uL; EOSINOPHILS % (AUTO) 2 % (0-4); LYMPHOCYTES # (AUTO) 0.6 X10^3; MEAN CORPUSCULAR HEMOGLOBIN 27.4 PG (26.0-34.0); MEAN CORPUSCULAR HGB CONC 34.9 g/dL (31.0-37.0); MEAN PLATELET VOLUME 13.7 FL (6.0-9.5); MONOCYTES # (AUTO) 0.7 X10^3; MONOCYTES % (AUTO) 9 % (3-11); NEUTROPHILS # (AUTO) 6.1 X10^3; NEUTROPHILS % (AUTO) 81 % (51-67); PLATELET COUNT 138 10^3uL (150-450)
[2016-07-07 06:04] LABS: MEAN CORPUSCULAR VOLUME 78 FL (80-100)
--- NOTE | 2016-07-07 06:16 | NUR ---
Patient rests in bed throughout night without needs. Remains on RA. Alert and confused at times, steady on feet with 1 assist to bathroom. Forgets to call. Tabs alarm, pressure alarm, and bed alarm in place. No needs at this time.
[2016-07-07 06:29] LABS: ALBUMIN 2.9 g/dL (3.4-5.0); ANION GAP 14.7 MEQ/L (3-15); CALCULATED IONIZED CALCIUM 4.5 mg/dL (3.8-4.6); MAGNESIUM* 2.1 mg/dL (1.6-2.3); TOTAL PROTEIN 5.5 g/dL (6.4-8.5)
[2016-07-07] MEDS: INSULIN LISPRO 1 UNIT/0.01 ML (HUMALOG) DOSE SC SCH ×7 (06:52→21:50)
--- NOTE | 2016-07-07 07:20 | NUR ---
Patient sitting up in recliner upon shift assessment. Alert and oriented to self only. Appears drowsy and lethargic but does answer questions appropriately. Respirations even and non-labored on roomair. Telemetry intact and reflecting a-fib. Hand tow truck driver equal. Abrasion to back of head not currently bleeding. Reports generalized pain, PRN Tylenol provided. TABS, chair alarm, and yellow gown intact for safety. Will continue to reorient frequently. Call light in reach.
[2016-07-07] MEDS: ACETAMINOPHEN 325 MG TAB (TYLENOL) PO PRN (08:43)
[2016-07-07] MEDS: CHOLECALCIFEROL 1000 INT UNITS (VITAMIN D3) TABLET PO SCH (08:44)
[2016-07-07] MEDS: hydrALAZINE 25 MG (APRESOLINE) TABLET PO SCH (08:44)
[2016-07-07] MEDS: APIXABAN 2.5 MG (ELIQUIS) TABLET PO SCH ×2 (08:44→20:15)
[2016-07-07] MEDS: ASPIRIN 81 MG CHEW (CHILDREN'S ASA) PO SCH (08:44)
[2016-07-07] MEDS: NS FLUSH 3 ML DAILY IV SCH (08:44)
[2016-07-07] MEDS: OMEGA-3 FATTY ACIDS (FISH OIL) 500 MG CAPSULE PO SCH (08:44)
[2016-07-07] MEDS: CYANOCOBALAMIN 1000 MCG (VITAMIN B-12) TABLET PO SCH (08:44)
[2016-07-07] MEDS: LOSARTAN 100 MG (COZAAR) TABLET PO SCH (08:44)
[2016-07-07] MEDS: MAGNESIUM OXIDE 400 MG (MAG-OX) TAB PO SCH ×2 (08:44→17:36)
[2016-07-07] MEDS: CARVEDILOL 25 MG (COREG) TABLET PO SCH (08:44)
[2016-07-07] MEDS ORDERED: FUROSEMIDE 40 MG (LASIX) TAB PO SCH (09:00)
[2016-07-07] MEDS: POTASSIUM CHLORIDE ER 20 MEQ TABLET PO SCH ×2 (09:52→17:36)
--- NOTE | 2016-07-07 11:21 | NUR ---
Dr. Salazar notified of patient's current status. Difficulty to arouse with verbal or physical stimuli. Vital signs, T- 97.0, P- 91, R- 12, BP- 90/40, 02- 93% on roomair. Blood sugar 306. Will continue to monitor.
--- NOTE | 2016-07-07 12:15 | NUR ---
Patient to CT via cart. Remains unresponsive. Daughter here and discussing plan of care with Dr. Salazar.
[2016-07-07 13:02] LABS: ABG PCO2 31 mmHg (35-45); ABG PH 7.46 (7.35-7.45); ABG PO2 88 mmHg (80-105)
[2016-07-07 13:03] LABS: ABG OXYGEN SATURATION 97 % (95-98)
--- NOTE | 2016-07-07 13:05 | NUR ---
IV infiltrated in right hand, discontinued with catheter intact. Mild redness noted at insertion site. Two unsuccessful IV attempts by this nurse. 20g IV initiated into left hand on first attempt by Marichuy Choi RN. No response to painful stimuli by patient. Daughter at bedside. Will continue to monitor.
--- NOTE | 2016-07-07 13:06 | NUR ---
Lab here and obtains blood cultures.
--- NOTE | 2016-07-07 13:30 | NUR ---
16 uzbek fraga catheter inserted using sterile technique by Marichuy Choi RN. Patient does not respond to painful stimuli. UA obtained and sent to lab. Will continue to monitor.
[2016-07-07] MEDS: cefTRIAXone SODIUM 1,000 MG in SODIUM CHLORIDE 50 ML IV SCH (13:37)
[2016-07-07 13:48] LABS: BILIRUBIN,URINE Negative (Negative); CLARITY,URINE Cloudy; COLOR,URINE Yellow; GLUCOSE, URINE (UA) Negative (Negative); LEUKOCYTE ESTERASE ,URINE Negative (Negative); PH,URINE 5.5 (5.0 - 8.0); UROBILINOGEN,URINE 0.2 mg/dL (0.2-1.0)
[2016-07-07 13:56] LABS: AMORPHOUS SEDIMENT,UR 3+ /HPF; RBC,URINE None Seen /HPF; URINE CENTRIFUGED VOLUME 10 mL
--- NOTE | 2016-07-07 14:54 | NUR ---
Patient awake and conversing with family members. Disoriented to place and situation. IVF infusing without difficulty. Denies pain or distress. Will continue to monitor.
[2016-07-07] MEDS: FERROUS SULFATE 325 MG (IRON) TABLET PO SCH (17:36)
--- NOTE | 2016-07-07 18:28 | NUR ---
Patient sitting up in bed feeding self supper. Alert and oriented to self. Swallows pills and follows commands without difficulty. Denies pain. IVF infusing without difficulty. call light in reach.
[2016-07-07] MEDS: ATORVASTATIN 40 MG (LIPITOR) TABLET PO SCH (20:15)
[2016-07-07] MEDS: INSULIN GLARGINE 1 UNIT/0.01ML (LANTUS) DOSE SC SCH (21:50)
--- NOTE | 2016-07-08 02:12 | NUR ---
Patient noted to have urine leaking from around catheter. Catheter DC'd and changed to 18F under sterile procedure, patient tolerates well. No needs at this time. Will continue to monitor.
[2016-07-08 04:21] VITALS: BP 159/78
--- NOTE | 2016-07-08 05:55 | NUR ---
Patient found to have pulled catheter partially out, bleeding around meatus tip and in catheter bag. Patient agitated, pulling more at catheter tubing. Balloon deflated by this nurse and catheter tubing pulled out, some clots pulled out. Physician notified, order to leave out received. No needs at this time. Will continue to monitor.
[2016-07-08] MEDS: LEVOTHYROXINE 50 MCG (LEVOTHROID) TABLET PO SCH (06:01)
--- NOTE | 2016-07-08 07:35 | NUR ---
Patient awake in bed upon shift assessment. Appears drowsy and lethargic. Alert and oriented to self only. Denies headache, SOA, or other distress. Hand gatehouse attendant equal. HR irregular. Lung sounds CTAB. Scant blood noted in brief from patient pulling on catheter that was removed in the night. Reoriented to place and situation. Yellow gown, tabs, and bed alarm intact for safety. Will continue to monitor.
[2016-07-08 08:00] VITALS: BP 160/81
[2016-07-08 08:13] LABS: BASOPHILS % (AUTO) 0 % (0-2); EOSINOPHILS # (AUTO) 0.1 10^3uL; EOSINOPHILS % (AUTO) 1 % (0-4); LYMPHOCYTES # (AUTO) 0.5 X10^3; MEAN CORPUSCULAR HEMOGLOBIN 27.4 PG (26.0-34.0); MEAN CORPUSCULAR HGB CONC 34.3 g/dL (31.0-37.0); MEAN CORPUSCULAR VOLUME 80 FL (80-100); MEAN PLATELET VOLUME 12.6 FL (6.0-9.5); MONOCYTES # (AUTO) 0.7 X10^3; MONOCYTES % (AUTO) 10 % (3-11); NEUTROPHILS # (AUTO) 5.6 X10^3; NEUTROPHILS % (AUTO) 82 % (51-67); PLATELET COUNT 152 10^3uL (150-450); WHITE BLOOD COUNT 6.91 10^3uL (4.0-11.0)
[2016-07-08] MEDS: APIXABAN 2.5 MG (ELIQUIS) TABLET PO SCH ×2 (08:16→19:20)
[2016-07-08] MEDS: INSULIN LISPRO 1 UNIT/0.01 ML (HUMALOG) DOSE SC SCH ×7 (08:16→21:13)
[2016-07-08] MEDS: CYANOCOBALAMIN 1000 MCG (VITAMIN B-12) TABLET PO SCH (08:17)
[2016-07-08] MEDS: NS FLUSH 3 ML DAILY IV SCH (08:17)
[2016-07-08] MEDS: MAGNESIUM OXIDE 400 MG (MAG-OX) TAB PO SCH ×2 (08:17→17:25)
[2016-07-08] MEDS: FERROUS SULFATE 325 MG (IRON) TABLET PO SCH ×2 (08:17→17:25)
[2016-07-08] MEDS: CHOLECALCIFEROL 1000 INT UNITS (VITAMIN D3) TABLET PO SCH (08:17)
[2016-07-08] MEDS: ASPIRIN 81 MG CHEW (CHILDREN'S ASA) PO SCH (08:17)
[2016-07-08] MEDS: POTASSIUM CHLORIDE ER 20 MEQ TABLET PO SCH ×2 (08:17→17:25)
[2016-07-08] MEDS: OMEGA-3 FATTY ACIDS (FISH OIL) 500 MG CAPSULE PO SCH (08:17)
[2016-07-08 08:56] LABS: ALBUMIN 2.8 g/dL (3.4-5.0); ANION GAP 14.7 MEQ/L (3-15); CALCULATED IONIZED CALCIUM 4.2 mg/dL (3.8-4.6); TOTAL PROTEIN 5.5 g/dL (6.4-8.5)
[2016-07-08 08:58] LABS: ERYTHROCYTE SEDIMENTATION RT* 46 mm/hr (0-19)
[2016-07-08] MEDS ORDERED: cefTRIAXone 1 GM (ROCEPHIN) VIAL IM SCH (09:00)
[2016-07-08] MEDS: ACETAMINOPHEN 325 MG TAB (TYLENOL) PO PRN ×2 (11:17→19:19)
[2016-07-08 11:29] VITALS: BP 160/80
--- NOTE | 2016-07-08 11:40 | NUR ---
NUTRITION ASSESSMENT Level 1 Patient: Shaila Lombardo Age/Sex: 85/M Date Screened: 07-08-16 Weight: 174.2#/79.2 kg Height: 70 inches Primary Diagnosis: acute respiratory distress Diet Order: medium diabetic Relevant labs: potassium 3.3, BUN 46, creatinine 1.39, glucose 165, AST 80, ALT 143, CRP 7.50, vitamin B12 (pending) Food allergies: N Nutrition Assessment Criteria Age over 80: 4 points Body Mass Index (BMI) under 19: N Admission Screening Indicates Risk? 6 points Moderate/High Risk Diagnosis: 3 points TPN or PPN: N NPO or clear liquid diet: N Serum Glucose <70 or >180: N Hgb A1c >6.7: N/A Total: 13 points Risk Screen: __ Patient at low nutritional risk based on available data; reevaluate in 5-7 days __ Patient at moderate nutritional risk based on available data; reevaluate in 3-5 days _X_ Patient at high nutritional risk; complete Nutrition Assessment within 48 hours of admission.
[2016-07-08] MEDS: cefTRIAXone SODIUM 1,000 MG in SODIUM CHLORIDE 50 ML IV SCH (13:52)
--- NOTE | 2016-07-08 15:08 | NUR ---
Presented the [employer]AG[employer] form to Pt. and his daughter Andie. She verbalized understanding and signed and dated the form. A copy was given to Andie and the original was placed in the chart. Discussed discharge plans with Pt. daughter such as skilled care or transitioning Pt. to care home care.
[2016-07-08 15:27] VITALS: BP 128/71
--- NOTE | 2016-07-08 18:05 | NUR ---
Patient remains alert and easy to arouse with verbal stimuli throughout day shift. Pleasant and cooperative with cares. Remains disoriented. Ambulates in [place] twice with staff, unsteady gate without walker. Denies headache or other distress. Sitting up in chair feeding self supper. Chair alarm intact for safety. Will continue to monitor.
--- NOTE | 2016-07-08 19:13 | NUR ---
Pt unable to follow instructions to do IS at this time.
[2016-07-08] MEDS: ATORVASTATIN 40 MG (LIPITOR) TABLET PO SCH (19:19)
[2016-07-08 19:36] VITALS: BP 150/71
[2016-07-08 20:04] LABS: CORTISOL AM 17 ug/dL (3-20)
[2016-07-08 20:37] LABS: VITAMIN B 12 >2000 pg/mL (213-816)
[2016-07-08] MEDS: INSULIN GLARGINE 1 UNIT/0.01ML (LANTUS) DOSE SC SCH (21:14)
[2016-07-08 23:58] VITALS: BP 162/74
[2016-07-09 04:18] VITALS: BP 158/75
[2016-07-09] MEDS: LEVOTHYROXINE 50 MCG (LEVOTHROID) TABLET PO SCH (05:42)
[2016-07-09] MEDS: INSULIN LISPRO 1 UNIT/0.01 ML (HUMALOG) DOSE SC SCH ×7 (05:46→21:57)
[2016-07-09 06:05] LABS: BASOPHILS % (AUTO) 0 % (0-2); EOSINOPHILS # (AUTO) 0.2 10^3uL; EOSINOPHILS % (AUTO) 4 % (0-4); LYMPHOCYTES # (AUTO) 0.7 X10^3; MEAN CORPUSCULAR HGB CONC 34.5 g/dL (31.0-37.0); MONOCYTES # (AUTO) 0.7 X10^3; MONOCYTES % (AUTO) 11 % (3-11); NEUTROPHILS # (AUTO) 4.4 X10^3; NEUTROPHILS % (AUTO) 74 % (51-67); PLATELET COUNT 160 10^3uL (150-450); WHITE BLOOD COUNT 5.93 10^3uL (4.0-11.0)
[2016-07-09 06:06] LABS: MEAN CORPUSCULAR HEMOGLOBIN 26.9 PG (26.0-34.0); MEAN CORPUSCULAR VOLUME 78 FL (80-100)
[2016-07-09 06:27] LABS: ANION GAP 12.8 MEQ/L (3-15)
[2016-07-09 07:52] VITALS: BP 156/70
[2016-07-09] MEDS: POLYETHYLENE GLYCOL 17 GM (MIRALAX) PACKET PO PRN (08:48)
[2016-07-09] MEDS: APIXABAN 2.5 MG (ELIQUIS) TABLET PO SCH ×2 (08:49→20:26)
[2016-07-09] MEDS: ASPIRIN 81 MG CHEW (CHILDREN'S ASA) PO SCH (08:49)
[2016-07-09] MEDS: FERROUS SULFATE 325 MG (IRON) TABLET PO SCH ×2 (08:49→17:33)
[2016-07-09] MEDS: POTASSIUM CHLORIDE ER 20 MEQ TABLET PO SCH ×2 (08:49→17:33)
[2016-07-09] MEDS: OMEGA-3 FATTY ACIDS (FISH OIL) 500 MG CAPSULE PO SCH (08:49)
[2016-07-09] MEDS: CHOLECALCIFEROL 1000 INT UNITS (VITAMIN D3) TABLET PO SCH (08:49)
[2016-07-09] MEDS: CYANOCOBALAMIN 1000 MCG (VITAMIN B-12) TABLET PO SCH (08:49)
[2016-07-09] MEDS: ACETAMINOPHEN 325 MG TAB (TYLENOL) PO PRN ×2 (08:49→19:25)
[2016-07-09] MEDS: MAGNESIUM OXIDE 400 MG (MAG-OX) TAB PO SCH ×2 (08:49→17:33)
[2016-07-09] MEDS: NS FLUSH 3 ML DAILY IV SCH (08:54)
--- NOTE | 2016-07-09 09:24 | NUR ---
NUTRITION ASSESSMENT Level II Patient: Shaila Lombardo Age/Sex: 85/M Date Assessed: 07-09-16 ASSESSMENT Pertinent History: Patient admitted with acute respiratory distress and screened at high nutritional risk secondary to significant weight loss compared with 1 month ago and multiple falls/weakness at home. PMHx includes diabetes, neuropathy, retinopathy, HTN, CAD, B12 deficiency, cholelithiasis, angina and anemia. He lives at assisted living but has had multiple falls recently, including 3 admissions to the ED within the past week. Pt. weighed 191# in 2014, then was most recently hospitalized with heart failure and significant weight fluctuations from fluid but was down to 197# on 06-14-16. He is able to feed himself meals. Meds/Nutrition: Ferrous sulfate, KCl, Mag ox, Fish oil, vitamin D, vitamin B12, Humalog, Synthroid, Lantus Weight: 175.5#/79.8 kg Height: 70 inches Body Mass Index (BMI): 25.2 [place] Body Weight : 166#/75.4 kg % IBW: 105% GASTROINTESTINAL Appetite: much improved; 10-20% on admission, 100% this morning Diet Order: medium diabetic Unintentional loss of >10 lbs. in 3 months: Yes Difficult to chew/swallow: N Diabetes: Yes Relevant Labs: glucose 172, vitamin B12 >2,000 Calculations for Nutritional Assessment Estimated calorie needs: 25-28 kcals/kg = 1,975-2,200 kcals Estimated protein needs: 1.0-1.3 g/kg = 79-102 g./day DIAGNOSIS 1. Nutrition Diagnosis: Inadequate intake related to illness as evidenced by documented weight loss of 21.5# in the past 3 weeks with frequent falls, increased confusion and reports of weakness. NUTRITIONAL INTERVENTION Goal: Patient will receive adequate nutrition to meet his needs. Plan: Will provide medium diabetic diet to patient as ordered and supplement with Glucerna at lunch and dinner. No reports of chewing or swallowing problems, but nursing is keeping an eye on him as well. Pt. may benefit from a more closely supervised environment at home, especially in terms of adequate food/fluid intake. Will monitor intake for adequacy and adjust nutrition interventions accordingly. MONITORING & EVALUATION _X_ Monitor patients menu selections _X_ Monitor patients food intake per nursing notes __ Monitor NPO/clear liquid days __ Monitor lab values __ Monitor I&O _X_ Other--monitor weight
[2016-07-09 11:37] VITALS: BP 133/67
--- NOTE | 2016-07-09 13:16 | NUR ---
Visited with Pt. daughters today regarding Pt. discharge plans. They are not interested in sending Pt. to skilled care and would prefer he return to [facility]. They reported the last time he was sent to skilled care he got down and started to deteriorate. Pt. is also at [facility]. The daughters have spoken to the facility and they are to increase Pt. level of care and provide more services to him. They would also like PT/OT ordered through [facility]. SAMY contacted [facility] and they are able to care for Pt. Plan for Pt. to discharge tomorrow morning in order for the facility to prepare for his discharge. SAMY informed Pt. daughter Oriana of this plan.
[2016-07-09] MEDS: cefTRIAXone SODIUM 1,000 MG in SODIUM CHLORIDE 50 ML IV SCH (14:32)
[2016-07-09 15:30] VITALS: BP 149/90
[2016-07-09 17:17] VITALS: BP 110/50
--- NOTE | 2016-07-09 18:04 | NUR ---
Pt has been resting in bed for majority of shift, up in chair for meals. Pt has been somewhat drowsy today, but when asked, does not endorse being tired. When asleep, rouses easily to name. Skin warm, dry, intact. Resprs nonlabored, even on RA. SL to L hand intact. Bed, tabs, and pressure alarms on. Call light within reach. Close to nurse's station for frequent monitoring.
[2016-07-09] MEDS: DOCUSATE SODIUM 100 MG (COLACE) CAP PO PRN (20:26)
[2016-07-09] MEDS: ATORVASTATIN 40 MG (LIPITOR) TABLET PO SCH (20:26)
[2016-07-09 20:27] VITALS: BP 144/77
--- NOTE | 2016-07-09 20:30 | NUR ---
Pt. takes PO meds without difficulty; appears fatigued/lethargic but does answer questions appropriately. Resp are even and unlabored on room air; states he is "achey"; will administer pain med when PRN available. Call light and H2O within reach.
[2016-07-09] MEDS: INSULIN GLARGINE 1 UNIT/0.01ML (LANTUS) DOSE SC SCH (21:57)
--- NOTE | 2016-07-09 22:00 | NUR ---
Accucheck is 224 this evening; Humalog 2 units given per sliding scale insulin. Lantus 15 units given per HS order. Pt. requesting snacks.
[2016-07-10] VITALS: BP 135/68
[2016-07-10] MEDS: ACETAMINOPHEN 325 MG TAB (TYLENOL) PO PRN ×2 (03:31→10:18)
--- NOTE | 2016-07-10 03:35 | NUR ---
Tylenol 650 mg PO given for back pain; unrated. Pt. just to and fro bathroom with gait belt & walker plus assist x 1. Pt. alert; follows directions well; cooperative with cares. Bed alarm on for safety; pillows placed for comfort; pt. now resting on left side. H2O replenished; call light by right hand.
[2016-07-10] MEDS: LEVOTHYROXINE 50 MCG (LEVOTHROID) TABLET PO SCH (06:02)
--- NOTE | 2016-07-10 06:05 | NUR ---
Pt. takes PO med without difficulty; has rested in long intervals; denies current needs; pillows placed for comfort. Bed alarm on for safety; call light by right hand.
[2016-07-10] MEDS: INSULIN LISPRO 1 UNIT/0.01 ML (HUMALOG) DOSE SC SCH ×4 (06:30→12:43)
--- NOTE | 2016-07-10 06:30 | NUR ---
Accucheck is 179 this morning; sliding scale insulin not required.
[2016-07-10 07:43] VITALS: BP 158/86
[2016-07-10] MEDS: APIXABAN 2.5 MG (ELIQUIS) TABLET PO SCH (08:06)
[2016-07-10] MEDS: CYANOCOBALAMIN 1000 MCG (VITAMIN B-12) TABLET PO SCH (08:06)
[2016-07-10] MEDS: CHOLECALCIFEROL 1000 INT UNITS (VITAMIN D3) TABLET PO SCH (08:06)
[2016-07-10] MEDS: POTASSIUM CHLORIDE ER 20 MEQ TABLET PO SCH (08:06)
[2016-07-10] MEDS: FERROUS SULFATE 325 MG (IRON) TABLET PO SCH (08:06)
[2016-07-10] MEDS: MAGNESIUM OXIDE 400 MG (MAG-OX) TAB PO SCH (08:06)
[2016-07-10] MEDS: OMEGA-3 FATTY ACIDS (FISH OIL) 500 MG CAPSULE PO SCH (08:06)
[2016-07-10] MEDS: ASPIRIN 81 MG CHEW (CHILDREN'S ASA) PO SCH (08:06)
[2016-07-10] MEDS: NS FLUSH 3 ML DAILY IV SCH (08:08)
--- NOTE | 2016-07-10 08:12 | NUR ---
Pt transferred from bed to chair for bfst meal using 1 assist, walker and gaitbelt. Pt takes AM meds without difficulty. Denies pain in back of head. Will cont to monitor. Fingerstick glucose this AM was 179, Pt given Humalog 5 units scheduled. Remains on RA. Call light within reach, Yellow gown/socks in place, tabs alarm and pressure alarm in place when in chair. Bed alarm turned on when in bed.
[2016-07-10] MEDS: DOCUSATE SODIUM 100 MG (COLACE) CAP PO PRN (09:31)
[2016-07-10] MEDS: POLYETHYLENE GLYCOL 17 GM (MIRALAX) PACKET PO PRN (09:31)
--- NOTE | 2016-07-10 09:33 | NUR ---
Pt to shower with HOUSEKEEPING/LAUNDRY- ambulated to/from shower using walker and gait belt, HOUSEKEEPING/LAUNDRY reports the patient ambulated without difficulty Pt had approx 50ml emesis consisting of undigested food while in shower. Miralax, MOM and Colace given with prune juice for possible constipation. No BM while admitted. Will cont to monitor patient.
--- NOTE | 2016-07-10 09:45 | NUR ---
Dr. Ashby at bedside- explained to patient that since he had emesis this AM, we will watch him through lunch and complete dismissal after that if no more emesis.
--- NOTE | 2016-07-10 10:21 | NUR ---
Tylenol given this AM for c/o back discomfort. Daughter at bedside.
--- NOTE | 2016-07-10 13:18 | NUR ---
Report called to Negar Walker RN at [facility]. [phone]
--- NOTE | 2016-07-10 13:36 | NUR ---
20g IV dc'd from [facility]. Tip intact, site without redness/swelling. Pt dressed in own clothes, daughters here- instructions reviewed with daughters and patient- discharge packet given to daughter and instructed to give entire packet of info to Negar RN at [facility]. Verbalizes understanding.
--- NOTE | 2016-07-10 13:40 | NUR ---
Pt dismissed to [facility] at this time via w/c accompanied by Daughters and Betty Schwartz CNA. Belongings and paperwork sent with patient.
== END 2016-07-10 13:40 | DRG 89 ==
LOC: EDUNIT# 10:19 → ED 10:20 → MED/SURG 14:20 → OBSVTOIN 07-07 12:43
PROVIDERS: ADMIT Internal Medicine; ATTEND Internal Medicine
DX: S06.0X1A Concussion with loss of consciousness of 30 minutes or less, initial encounter (principal); I50.22 Chronic systolic (congestive) heart failure; E86.0 Dehydration; Z66 Do not resuscitate; R55 Syncope and collapse; I49.3 Ventricular premature depolarization; R74.8 Abnormal levels of other serum enzymes; E11.40 Type 2 diabetes mellitus with diabetic neuropathy, unspecified; I48.91 Unspecified atrial fibrillation; I25.10 Atherosclerotic heart disease of native coronary artery without angina pectoris; I11.0 Hypertensive heart disease with heart failure; Z91.81 History of falling; W19.XXXA Unspecified fall, initial encounter
CPT/HCPCS: 12001; 36415; 36600; 70450; 71020; 72125; 80048; 80053; 81003; 81015; 82140; 82533; 82607; 82803; 83735; 83880; 83921; 84439; 84443; 84484; 85025; 85652; 86140; 87040; 93005; 94760; 96374; 99283